=== PATIENT | female | born 1970 | race African-American/Black ===

== ENCOUNTER 2023-04-23 09:19 | Inpatient (IN) | payer SELFPAY ==
[~2023-04-23] VITALS: Ht 170.2 cm; Wt 111.6 kg
[2023-04-23] MEDS ORDERED: GLYB3TAB2 PO (09:29)
[2023-04-23] MEDS ORDERED: NORV5TAB PO (09:29)
[2023-04-23] MEDS ORDERED: ATOR1TAB21 PO (09:29)
[2023-04-23] MEDS ORDERED: VITA500C24 PO (09:29)
[2023-04-23] MEDS ORDERED: ALBU2.5V10 INH (09:29)
[2023-04-23] MEDS ORDERED: ONDA4TAB6 SL (09:29)
[2023-04-23] MEDS: ONDANSETRON 4MG 2ML VIAL IV ONE (10:49)
[2023-04-23] MEDS: NS 1,000 ML IV SCH (10:49)
[2023-04-23] MEDS: MORPHINE 4 MG/ML 1ML VIAL IV PRN (10:50)
[2023-04-23 11:07] LABS: BASO # 0.1 10^3/uL (0.0-0.2); BASO % 0.4 % (0.0-1.0); EOS # 0.3 10^3/uL (0.0-0.5); EOS % 1.9 % (0.0-3.0); HEMATOCRIT 46.6 % (36.0-47.0); HEMOGLOBIN 15.2 g/dl (12.0-15.5); LYMPH # 2.7 10^3/uL (1.5-5.0); LYMPH % 18.9 % (24.0-44.0); MEAN CORPUSCULAR HEMOGLOBIN 29.9 pg (27.0-33.0); MEAN CORPUSCULAR HGB CONC 32.6 g/dl (32.0-36.5); MEAN CORPUSCULAR VOLUME 91.6 fl (80.0-96.0); MONO # 0.7 10^3/uL (0.0-0.8); MONO % 5.1 % (2.0-8.0); NEUTROPHILS # 10.3 10^3/uL (1.5-8.5); NEUTROPHILS % 73.3 % (36.0-66.0); PLATELET COUNT, AUTOMATED 289 10^3/uL (150-450); RED BLOOD COUNT 5.09 10^6/uL (4.00-5.40)
[2023-04-23 11:21] LABS: INR 1.05; PARTIAL THROMBOPLASTIN TIME 26.2 SECONDS (24.8-34.2); PROTHROMBIN TIME 13.4 SECONDS (12.5-14.5)
[2023-04-23] MEDS ORDERED: ISOVUE-370 76% 100ML VIAL As Ordered ONE (11:28)
[2023-04-23 11:33] LABS: LIPASE 52 U/L (12-53)
[2023-04-23 11:35] LABS: ALKALINE PHOSPHATASE 94 U/L (46-116); ALT/SGPT 15 U/L (7.0-40); AMYLASE 116 U/L (30-118); AST/SGOT 12 U/L (<34); BILIRUBIN,DIRECT 0.1 MG/DL (<0.4); BILIRUBIN,TOTAL 0.3 MG/DL (0.3-1.2); TOTAL PROTEIN 8.5 G/DL (5.7-8.2)
[2023-04-23 11:54] LABS: RSV AMPLIFICATION NEGATIVE (NEGATIVE)
[2023-04-23] MEDS ORDERED: ONDANSETRON 4MG 2ML VIAL IV PRN (12:45)
[2023-04-23] MEDS ORDERED: DEXTROSE 50% 50ML SYRINGE IV PRN (12:45)
[2023-04-23] MEDS ORDERED: GLUCOSE 4GM CHEW TABLET PO PRN (12:45)
[2023-04-23] MEDS ORDERED: GLUCAGON INJ 1MG VIAL SC PRN (12:45)
[2023-04-23] MEDS ORDERED: FERR1TAB8 PO (13:11)
[2023-04-23] MEDS ORDERED: LISI20TA35 PO (13:11)
[2023-04-23] MEDS ORDERED: ALBU8.5H INH (13:11)
[2023-04-23] MEDS ORDERED: GLIM2TAB29 PO (13:11)
[2023-04-23] MEDS ORDERED: OMEP1CAP73 PO (13:12)
[2023-04-23] MEDS ORDERED: HOME MED LIST COMPLETE! XX SCH (13:15)
[2023-04-23 13:24] LABS: PROCALCITONIN <0.04 ng/ml
[2023-04-23] MEDS: LABETALOL 100MG/20ML VIAL IV STA (14:03)
[2023-04-23 14:56] LABS: HEMOGLOBIN A1c 5.9 % (4.0-6.0)
[2023-04-23 16:58] VITALS: BP 188/76; TEMP 98.1; O2SAT 97
[2023-04-23] MEDS ORDERED: MORPHINE 4 MG/ML 1ML VIAL IV PRN (17:00)
[2023-04-23] MEDS ORDERED: ALBUTEROL 90 MCG/ACT 8GM HFA INHALER INH PRN (17:00)
[2023-04-23] MEDS: LABETALOL 100MG/20ML VIAL IV PRN (17:12)
[2023-04-23] MEDS: INSULIN LISPRO (NovoLOG) PER UNIT SC SCH (17:15)
[2023-04-23] MEDS: LR 1,000 ML IV SCH (17:15)
[2023-04-23 18:34] VITALS: BP 161/74
[2023-04-23 19:46] VITALS: BP 179/79; TEMP 98.2; O2SAT 96
[2023-04-23 23:57] VITALS: BP 157/75; TEMP 97.8; O2SAT 96
[2023-04-24] VITALS (8 sets, daily range): BP systolic 168–188; BP diastolic 72–92; TEMP 98.2–98.6; O2SAT 95–99
[2023-04-24] MEDS: ACETAMINOPHEN TAB 650MG DOSE (2X325MG) PO PRN (00:50)
[2023-04-24 05:49] LABS: HEMATOCRIT 41.9 % (36.0-47.0); HEMOGLOBIN 13.6 g/dl (12.0-15.5); MEAN CORPUSCULAR HEMOGLOBIN 29.8 pg (27.0-33.0); MEAN CORPUSCULAR HGB CONC 32.5 g/dl (32.0-36.5); MEAN CORPUSCULAR VOLUME 91.7 fl (80.0-96.0); PLATELET COUNT, AUTOMATED 277 10^3/uL (150-450); RED BLOOD COUNT 4.57 10^6/uL (4.00-5.40); WHITE BLOOD COUNT 10.2 10^3/uL (4.0-10.0)
[2023-04-24 06:17] LABS: BLOOD UREA NITROGEN 13 MG/DL (9-23); CALCIUM LEVEL 9.1 MG/DL (8.5-10.1); CARBON DIOXIDE LEVEL 27 MMOL/L (20-31); CHLORIDE LEVEL 106 MMOL/L (98-107); GLOMERULAR FILTRATION RATE > 60.0 (>51); GLUCOSE, FASTING 99 MG/DL (60-100); MAGNESIUM LEVEL 1.7 MG/DL (1.8-2.4); POTASSIUM SERUM 3.8 MMOL/L (3.5-5.1); SODIUM LEVEL 139 MMOL/L (136-145)
[2023-04-24] MEDS: ENOXAPARIN 40MG/0.4ML SYRINGE (J1650 PER 10MG) SC SCH (08:39)
[2023-04-24] MEDS: MAG SULF 1GM/100ML (MAG RUN) 1 GM in IV 1 EA IV ONE (08:39)
[2023-04-24] MEDS: LIDOCAINE 5% (LIDODERM) PATCH TD SCH (10:45)
[2023-04-24] MEDS: amLODIPine 5 MG TAB PO SCH (11:23)
[2023-04-24] MEDS: hydroCHLOROthiazide 12.5 MG CAPSULE PO SCH (11:23)
[2023-04-24] MEDS: amLODIPine 5 MG TAB PO ONE (14:51)
[2023-04-25 00:05] VITALS: BP 145/65; TEMP 97.6; O2SAT 97
[2023-04-25 03:56] VITALS: BP 138/60; TEMP 97.5; O2SAT 98
[2023-04-25 08:10] VITALS: BP 169/79; TEMP 97.9; O2SAT 98
[2023-04-25 10:24] LABS: BASO % 0.5 % (0.0-1.0); EOS # 0.3 10^3/uL (0.0-0.5); EOS % 3.7 % (0.0-3.0); HEMATOCRIT 43.6 % (36.0-47.0); HEMOGLOBIN 14.3 g/dl (12.0-15.5); LYMPH # 2.9 10^3/uL (1.5-5.0); MEAN CORPUSCULAR HGB CONC 32.8 g/dl (32.0-36.5); MEAN CORPUSCULAR VOLUME 91.6 fl (80.0-96.0); MONO # 0.7 10^3/uL (0.0-0.8); MONO % 8.9 % (2.0-8.0); NEUTROPHILS # 4.3 10^3/uL (1.5-8.5); NEUTROPHILS % 51.7 % (36.0-66.0); PLATELET COUNT, AUTOMATED 194 10^3/uL (150-450); RED BLOOD COUNT 4.76 10^6/uL (4.00-5.40); WHITE BLOOD COUNT 8.3 10^3/uL (4.0-10.0)
[2023-04-25 11:49] LABS: BLOOD UREA NITROGEN 10 MG/DL (9-23); CALCIUM LEVEL 9.3 MG/DL (8.5-10.1); CARBON DIOXIDE LEVEL 28 MMOL/L (20-31); CHLORIDE LEVEL 106 MMOL/L (98-107); CREATININE FOR GFR 0.73 MG/DL (0.55-1.30); GLOMERULAR FILTRATION RATE > 60.0 (>51); GLUCOSE, FASTING 92 MG/DL (60-100); MAGNESIUM LEVEL 1.5 MG/DL (1.8-2.4); POTASSIUM SERUM 3.9 MMOL/L (3.5-5.1); SODIUM LEVEL 139 MMOL/L (136-145)
[2023-04-25 11:56] VITALS: BP 162/74
[2023-04-25 12:01] VITALS: BP 162/74
[2023-04-25] MEDS: LABETALOL 100MG/20ML VIAL IV ONE (12:01)
[2023-04-25 12:30] VITALS: BP 152/83
[2023-04-25] MEDS ORDERED: ATOR1TAB21 PO (13:00)
[2023-04-25] MEDS ORDERED: ONDA4TAB6 SL (13:00)
[2023-04-25] MEDS ORDERED: GLIM2TAB29 PO (13:00)
[2023-04-25] MEDS ORDERED: VITA500C24 PO (13:00)
[2023-04-25] MEDS ORDERED: ALBU8.5H INH (13:00)
[2023-04-25] MEDS ORDERED: OMEP1CAP73 PO (13:00)
[2023-04-25] MEDS ORDERED: FERR1TAB8 PO (13:00)
[2023-04-25] MEDS ORDERED: LISI20TA35 PO (13:00)
[2023-04-25] MEDS ORDERED: NORV5TAB PO (13:00)
== END 2023-04-25 13:15 | disposition home or self-care (01) | DRG 247 ==
LOC: M ED 09:19 → M ED INP 12:43 → ENRESERV 13:51 → M PCU 16:39
PROVIDERS: ADMIT Internal Medicine; ATTEND Internal Medicine
DX: K56.609 Unspecified intestinal obstruction, unspecified as to partial versus complete obstruction (principal); D72.829 Elevated white blood cell count, unspecified; I10 Essential (primary) hypertension; E11.9 Type 2 diabetes mellitus without complications; J45.909 Unspecified asthma, uncomplicated; I16.0 Hypertensive urgency; Z91.148 Patient's other noncompliance with medication regimen for other reason; Z88.5 Allergy status to narcotic agent; Z79.899 Other long term (current) drug therapy; M54.2 Cervicalgia

== ENCOUNTER 2023-05-01 11:32 | Observation (INO) | payer SELFPAY ==
[~2023-05-01] VITALS: Ht 170.2 cm; Wt 110.0 kg
[~2023-05-01 11:32] MED LIST: ALBU2.5V10 INH; ALBU8.5H INH; ATOR1TAB21 PO; FERR1TAB8 PO; GLIM2TAB29 PO; GLYB3TAB2 PO; LISI20TA35 PO; NORV5TAB PO; OMEP1CAP73 PO; ONDA4TAB6 SL; VITA500C24 PO
[2023-05-01 12:05] LABS: BASO # 0.1 10^3/uL (0.0-0.2); BASO % 0.5 % (0.0-1.0); EOS # 0.2 10^3/uL (0.0-0.5); EOS % 1.8 % (0.0-3.0); HEMATOCRIT 48.4 % (36.0-47.0); HEMOGLOBIN 15.6 g/dl (12.0-15.5); LYMPH # 2.7 10^3/uL (1.5-5.0); LYMPH % 20.4 % (24.0-44.0); MEAN CORPUSCULAR HGB CONC 32.2 g/dl (32.0-36.5); MEAN CORPUSCULAR VOLUME 93.1 fl (80.0-96.0); MONO # 0.6 10^3/uL (0.0-0.8); MONO % 4.8 % (2.0-8.0); NEUTROPHILS # 9.5 10^3/uL (1.5-8.5); PLATELET COUNT, AUTOMATED 341 10^3/uL (150-450); WHITE BLOOD COUNT 13.2 10^3/uL (4.0-10.0)
[2023-05-01] MEDS: MORPHINE 4 MG/ML 1ML VIAL IV ONE (12:35)
[2023-05-01 12:36] LABS: ALKALINE PHOSPHATASE 84 U/L (46-116); ALT/SGPT 19 U/L (7.0-40); AST/SGOT 42 U/L (<34); BILIRUBIN,DIRECT < 0.1 MG/DL (<0.4); BILIRUBIN,TOTAL 0.3 MG/DL (0.3-1.2); BLOOD UREA NITROGEN 17 MG/DL (9-23); CARBON DIOXIDE LEVEL 30 MMOL/L (20-31); CHLORIDE LEVEL 104 MMOL/L (98-107); CREATININE FOR GFR 0.75 MG/DL (0.55-1.30); GLOMERULAR FILTRATION RATE > 60.0 (>51); GLUCOSE, FASTING 149 MG/DL (60-100); LIPASE 176 U/L (12-53); POTASSIUM SERUM 5.3 MMOL/L (3.5-5.1); SODIUM LEVEL 139 MMOL/L (136-145); TOTAL PROTEIN 8.6 G/DL (5.7-8.2)
[2023-05-01] MEDS: ONDANSETRON 4MG 2ML VIAL IV ONE (12:58)
[2023-05-01] MEDS: NS 1,000 ML IV SCH (12:58)
[2023-05-01] MEDS ORDERED: ISOVUE-370 76% 100ML VIAL As Ordered ONE (13:12)
[2023-05-01] MEDS: GASTROGRAFIN SOLUTION 30ML PO SCH (13:48)
[2023-05-01 14:13] LABS: RSV AMPLIFICATION NEGATIVE (NEGATIVE)
[2023-05-01] MEDS ORDERED: MORPHINE 4 MG/ML 1ML VIAL IV ONE (16:20)
[2023-05-01] MEDS: ACETAMINOPHEN *IV* 1,000 MG in IV 1 EA IV ONE (16:43)
[2023-05-01] MEDS ORDERED: MED REC IN PROGRESS XX SCH (16:45)
[2023-05-01 16:48] LABS: TRIGLYCERIDES LEVEL 93 MG/DL (<150)
[2023-05-01] MEDS ORDERED: GLUCOSE 4GM CHEW TABLET PO PRN (17:40)
[2023-05-01] MEDS ORDERED: GLUCAGON INJ 1MG VIAL SC PRN (17:40)
[2023-05-01] MEDS ORDERED: DEXTROSE 50% 50ML SYRINGE IV PRN (17:40)
[2023-05-01] MEDS ORDERED: ONDANSETRON 4MG 2ML VIAL IV PRN (17:40)
[2023-05-01] MEDS ORDERED: hydrALAZINE 20MG/ML 1ML VIAL IV PRN (17:50)
[2023-05-01] MEDS ORDERED: MORPHINE 2 MG/ML 1ML VIAL IV PRN (17:55)
[2023-05-01] MEDS: INSULIN LISPRO (NovoLOG) PER UNIT SC SCH (18:00)
[2023-05-01] MEDS ORDERED: HOME MED LIST COMPLETE! XX SCH (18:05)
[2023-05-01] MEDS ORDERED: FERR325T3 PO (18:05)
[2023-05-01] MEDS ORDERED: AMLO1TAB24 PO (18:05)
[2023-05-01] MEDS ORDERED: ONDA4TAB6 PO (18:05)
[2023-05-01] MEDS ORDERED: VENTAER INH (18:05)
[2023-05-01] MEDS ORDERED: MM S100C PO (18:05)
[2023-05-01 18:06] LABS: HEMATOCRIT 44.7 % (36.0-47.0); HEMOGLOBIN 14.5 g/dl (12.0-15.5)
[2023-05-01] MEDS ORDERED: ALBUTEROL 90 MCG/ACT 8GM HFA INHALER INH PRN (18:10)
[2023-05-01] MEDS ORDERED: DOCUSATE SODIUM 100MG CAPSULE PO PRN (18:10)
[2023-05-01] MEDS: SUCRALFATE 1 GM TAB PO SCH (19:08)
[2023-05-01] MEDS: LACTATED RINGER'S 1000 ML IV ONE (19:09)
[2023-05-01 20:46] VITALS: BP 168/79; TEMP 97.2; O2SAT 95
[2023-05-01 20:47] VITALS: BP 160/92
[2023-05-01 21:00] VITALS: O2SAT 95
[2023-05-01 22:00] VITALS: O2SAT 93
[2023-05-01] MEDS: PANTOPRAZOLE 40MG VIAL IV SCH (22:12)
[2023-05-01 23:00] VITALS: O2SAT 91
[2023-05-01] MEDS: ACETAMINOPHEN TAB 650MG DOSE (2X325MG) PO PRN (23:54)
[2023-05-02] VITALS (13 sets, daily range): BP systolic 124–163; BP diastolic 58–87; TEMP 96.8–98.8; O2SAT 90–100
[2023-05-02 00:36] LABS: HEMATOCRIT 41.4 % (36.0-47.0); HEMOGLOBIN 13.5 g/dl (12.0-15.5)
[2023-05-02 05:38] LABS: BASO # 0.1 10^3/uL (0.0-0.2); BASO % 0.8 % (0.0-1.0); EOS # 0.2 10^3/uL (0.0-0.5); HEMATOCRIT 40.9 % (36.0-47.0); HEMOGLOBIN 13.5 g/dl (12.0-15.5); LYMPH # 2.8 10^3/uL (1.5-5.0); LYMPH % 35.8 % (24.0-44.0); MEAN CORPUSCULAR HEMOGLOBIN 30.1 pg (27.0-33.0); MEAN CORPUSCULAR VOLUME 91.1 fl (80.0-96.0); MONO # 0.6 10^3/uL (0.0-0.8); MONO % 7.3 % (2.0-8.0); NEUTROPHILS # 4.1 10^3/uL (1.5-8.5); NEUTROPHILS % 52.8 % (36.0-66.0); PLATELET COUNT, AUTOMATED 305 10^3/uL (150-450); RED BLOOD COUNT 4.49 10^6/uL (4.00-5.40); WHITE BLOOD COUNT 7.8 10^3/uL (4.0-10.0)
[2023-05-02 06:01] LABS: ALBUMIN 3.3 G/DL (3.2-5.2); ALKALINE PHOSPHATASE 74 U/L (46-116); ALT/SGPT 13 U/L (7.0-40); AST/SGOT 9 U/L (<34); BILIRUBIN,TOTAL 0.4 MG/DL (0.3-1.2); BLOOD UREA NITROGEN 14 MG/DL (9-23); CALCIUM LEVEL 9.1 MG/DL (8.5-10.1); CARBON DIOXIDE LEVEL 28 MMOL/L (20-31); CHLORIDE LEVEL 108 MMOL/L (98-107); CREATININE FOR GFR 0.75 MG/DL (0.55-1.30); GLOMERULAR FILTRATION RATE > 60.0 (>51); GLUCOSE, FASTING 119 MG/DL (60-100); MAGNESIUM LEVEL 1.6 MG/DL (1.8-2.4); POTASSIUM SERUM 3.8 MMOL/L (3.5-5.1); SODIUM LEVEL 140 MMOL/L (136-145); TOTAL PROTEIN 7.1 G/DL (5.7-8.2)
[2023-05-02] MEDS ORDERED: PANT40TA29 PO (08:15)
[2023-05-02] MEDS ORDERED: CARA1TAB6 PO (08:15)
[2023-05-02] MEDS: ASCORBIC ACID 500 MG TAB PO SCH (08:42)
[2023-05-02] MEDS: amLODIPine 5 MG TAB PO SCH (08:43)
[2023-05-02] MEDS: MAG SULF 1GM/100ML (MAG RUN) 1 GM in IV 1 EA IV SCH (08:43)
[2023-05-02] MEDS: ATORVASTATIN 20 MG TAB PO SCH (08:43)
[2023-05-02] MEDS: hydroCHLOROthiazide 12.5 MG CAPSULE PO ONE (11:29)
[2023-05-02 13:10] LABS: HEMATOCRIT 43.2 % (36.0-47.0)
== END 2023-05-02 14:12 | disposition home or self-care (01) ==
LOC: M ED 11:59 → INTOOBSV 17:12 → M ED INP 17:12 → ENRESERV 19:30 → M PCU 20:29
PROVIDERS: ADMIT Internal Medicine; ATTEND Internal Medicine
DX: K85.90 Acute pancreatitis without necrosis or infection, unspecified (principal); K29.70 Gastritis, unspecified, without bleeding; I10 Essential (primary) hypertension; E11.9 Type 2 diabetes mellitus without complications; J45.909 Unspecified asthma, uncomplicated; M54.30 Sciatica, unspecified side; Z79.51 Long term (current) use of inhaled steroids; Z79.899 Other long term (current) drug therapy; Z88.5 Allergy status to narcotic agent
CPT/HCPCS: 36415; 74177; 80048; 80053; 80076; 83690; 83735; 84132; 84478; 85014; 85018; 85025; 87631; 93005; 93041; 96361; 96365; 96375; 96376; 99285; C9113; J0131; J2405; J3475; Q9963; Q9967

== ENCOUNTER → 2023-05-13 | Outpatient (REF) | payer MEDICAID, SELFPAY ==
[~2023-05-13] MED LIST changes: +AMLO1TAB24 PO; +CARA1TAB6 PO; +FERR325T3 PO; +MM S100C PO; +ONDA-83 PO; +ONDA4TAB6 PO; +PANT40TA29 PO; +SUCR1TA PO; +VENTAER INH
[2023-05-13 12:24] LABS: BASO # 0.1 10^3/uL (0.0-0.2); BASO % 0.6 % (0.0-1.0); EOS # 0.3 10^3/uL (0.0-0.5); EOS % 3.8 % (0.0-3.0); HEMATOCRIT 46.4 % (36.0-47.0); LYMPH # 2.9 10^3/uL (1.5-5.0); LYMPH % 32.1 % (24.0-44.0); MEAN CORPUSCULAR HEMOGLOBIN 30.1 pg (27.0-33.0); MEAN CORPUSCULAR HGB CONC 32.3 g/dl (32.0-36.5); MONO # 0.5 10^3/uL (0.0-0.8); MONO % 5.3 % (2.0-8.0); NEUTROPHILS # 5.2 10^3/uL (1.5-8.5); NEUTROPHILS % 57.9 % (36.0-66.0); PLATELET COUNT, AUTOMATED 356 10^3/uL (150-450); RED BLOOD COUNT 4.99 10^6/uL (4.00-5.40)
[2023-05-13 12:49] LABS: LIPASE 47 U/L (12-53)
[2023-05-13 12:51] LABS: ALKALINE PHOSPHATASE 87 U/L (46-116); ALT/SGPT 14 U/L (7.0-40); AST/SGOT 10 U/L (<34); BILIRUBIN,TOTAL 0.2 MG/DL (0.3-1.2); BLOOD UREA NITROGEN 20 MG/DL (9-23); CALCIUM LEVEL 9.8 MG/DL (8.5-10.1); CARBON DIOXIDE LEVEL 28 MMOL/L (20-31); CHLORIDE LEVEL 102 MMOL/L (98-107); CHOLESTEROL LEVEL 200 MG/DL (<200); CREATININE FOR GFR 0.88 MG/DL (0.55-1.30); GLOMERULAR FILTRATION RATE > 60.0 (>51); GLUCOSE, FASTING 147 MG/DL (60-100); HDL CHOLESTEROL 51.2 MG/DL (>40); IRON (FE) 33 UG/DL (50-170); LDL CHOLESTEROL 122.6 MG/DL (<100); MAGNESIUM LEVEL 1.6 MG/DL (1.8-2.4); NON-HDL-C 148.8 MG/DL; PERCENT SATURATION 10.1 % (13.2-45.0); POTASSIUM SERUM 4.1 MMOL/L (3.5-5.1); SODIUM LEVEL 138 MMOL/L (136-145); TOTAL IRON BINDING CAPACITY 327 UG/DL (250-425); TOTAL PROTEIN 8.5 G/DL (5.7-8.2); TRIGLYCERIDES LEVEL 131 MG/DL (<150)
[2023-05-13 12:53] LABS: FERRITIN 30.4 NG/ML (7.3-270.7); THYROID STIMULATING HORMONE 1.643 uIU/ML (0.55-4.78)
[2023-05-13 12:54] LABS: FOLATE > 24.0 NG/ML (>5.4); TOTAL 25(OH) VITAMIN D 39.9 NG/ML (20.0-100.0); VITAMIN B12 LEVEL 1049 PG/ML (211-911)
== END ==
LOC: M LAB REF 11:50
PROVIDERS: ATTEND Nurse Practitioner Family
DX: D64.9 Anemia, unspecified (principal); E66.9 Obesity, unspecified; E55.9 Vitamin D deficiency, unspecified; K85.90 Acute pancreatitis without necrosis or infection, unspecified

== ENCOUNTER 2023-05-16 08:40 | Inpatient (IN) | payer SELFPAY ==
[~2023-05-16] VITALS: Ht 170.2 cm; Wt 100.9 kg
[~2023-05-16 08:40] MED LIST changes: -ONDA-83 PO; -SUCR1TA PO
[2023-05-16 09:22] LABS: BASO # 0.1 10^3/uL (0.0-0.2); BASO % 0.7 % (0.0-1.0); EOS # 0.4 10^3/uL (0.0-0.5); EOS % 4.3 % (0.0-3.0); HEMATOCRIT 46.5 % (36.0-47.0); HEMOGLOBIN 15.3 g/dl (12.0-15.5); LYMPH # 4.8 10^3/uL (1.5-5.0); LYMPH % 47.5 % (24.0-44.0); MEAN CORPUSCULAR HEMOGLOBIN 29.7 pg (27.0-33.0); MEAN CORPUSCULAR HGB CONC 32.9 g/dl (32.0-36.5); MEAN CORPUSCULAR VOLUME 90.3 fl (80.0-96.0); MONO # 0.7 10^3/uL (0.0-0.8); MONO % 7.3 % (2.0-8.0); NEUTROPHILS % 39.9 % (36.0-66.0); PLATELET COUNT, AUTOMATED 357 10^3/uL (150-450); RED BLOOD COUNT 5.15 10^6/uL (4.00-5.40); WHITE BLOOD COUNT 10.1 10^3/uL (4.0-10.0)
[2023-05-16 09:31] LABS: INR 1.01
[2023-05-16] MEDS: HALOPERIDOL 5MG/ML 1ML VIAL IV ONE (09:33)
[2023-05-16] MEDS: NS 1,000 ML IV SCH (09:33)
[2023-05-16 09:44] LABS: ETHYL ALCOHOL (ETHANOL) 0.005 % (0.000-0.010); LIPASE 48 U/L (12-53)
[2023-05-16 09:45] LABS: AMYLASE 140 U/L (30-118)
[2023-05-16 09:46] LABS: ALBUMIN 3.8 G/DL (3.2-5.2); ALKALINE PHOSPHATASE 92 U/L (46-116); ALT/SGPT 14 U/L (7.0-40); AST/SGOT 24 U/L (<34); BILIRUBIN,DIRECT < 0.1 MG/DL (<0.4); BILIRUBIN,TOTAL 0.2 MG/DL (0.3-1.2); BLOOD UREA NITROGEN 18 MG/DL (9-23); CARBON DIOXIDE LEVEL 26 MMOL/L (20-31); CHLORIDE LEVEL 102 MMOL/L (98-107); GLOMERULAR FILTRATION RATE > 60.0 (>51); GLUCOSE, FASTING 145 MG/DL (60-100); SODIUM LEVEL 139 MMOL/L (136-145); TOTAL PROTEIN 8.6 G/DL (5.7-8.2)
[2023-05-16] MEDS: NS 3,030 ML in IV 1 EA IV ONE (10:20)
[2023-05-16] MEDS: PIPERACILLIN/TAZOBACTAM SOD 4.5 GM in D5W MINI-BAG PLUS 50 ML IV ONE (10:20)
[2023-05-16] MEDS: GASTROGRAFIN SOLUTION 30ML PO SCH (10:49)
[2023-05-16] MEDS ORDERED: ISOVUE-370 76% 100ML VIAL As Ordered ONE (11:16)
[2023-05-16 12:44] LABS: BARBITURATES URINE NEGATIVE (NEGATIVE); COCAINE METABOLITE URINE NEGATIVE (NEGATIVE); METHADONE URINE NEGATIVE (NEGATIVE)
[2023-05-16 12:45] LABS: AMPHETAMINES LEVEL URINE NEGATIVE (NEGATIVE); BENZODIAZEPINES URINE NEGATIVE (NEGATIVE); OPIATES URINE NEGATIVE (NEGATIVE); PHENCYCLIDINE URINE NEGATIVE (NEGATIVE)
[2023-05-16 12:46] LABS: CANNABINOIDS URINE POSITIVE (NEGATIVE)
[2023-05-16] MEDS ORDERED: KETOROLAC 30 MG/ML 1ML VIAL IV PRN (14:10)
[2023-05-16] MEDS ORDERED: ONDANSETRON 4MG 2ML VIAL IV PRN (14:10)
[2023-05-16] MEDS ORDERED: SUCR1TA PO (14:36)
[2023-05-16] MEDS ORDERED: PANT40TA29 PO (14:36)
[2023-05-16] MEDS ORDERED: HOME MED LIST COMPLETE! XX SCH (14:40)
[2023-05-16] MEDS ORDERED: GLUCAGON INJ 1MG VIAL SC PRN (15:00)
[2023-05-16] MEDS ORDERED: DEXTROSE 50% 50ML SYRINGE IV PRN (15:00)
[2023-05-16] MEDS ORDERED: GLUCOSE 4GM CHEW TABLET PO PRN (15:00)
[2023-05-16] MEDS: hydrALAZINE 20MG/ML 1ML VIAL IV SCH (15:29)
[2023-05-16] MEDS: ACETAMINOPHEN *IV* 1,000 MG in IV 1 EA IV ONE (15:29)
[2023-05-16] MEDS: METOPROLOL 5 MG/5 ML VIAL IV SCH (15:29)
[2023-05-16] MEDS: D5W/0.45% SODIUM CHLORIDE 1,000 ML IV SCH (15:30)
[2023-05-16] MEDS: BISACODYL 10MG SUPP PR ONE (15:31)
[2023-05-16] MEDS: NS 1,000 ML IV ONE (15:31)
[2023-05-16 16:16] VITALS: BP 152/79; TEMP 98.1; O2SAT 99
[2023-05-16] MEDS ORDERED: BISACODYL 10MG SUPP PR SCH (21:00)
[2023-05-17] MEDS ORDERED: PANTOPRAZOLE 40MG VIAL IV SCH (09:00)
== END 2023-05-16 17:17 | disposition home or self-care (01) | DRG 247 ==
LOC: M ED 09:15 → M ED INP 14:04
PROVIDERS: ADMIT General Practice; ATTEND General Practice
DX: K56.600 Partial intestinal obstruction, unspecified as to cause (principal); E87.20 Acidosis, unspecified; D72.10 Eosinophilia, unspecified; E11.9 Type 2 diabetes mellitus without complications; I10 Essential (primary) hypertension; E66.9 Obesity, unspecified; Z68.34 Body mass index [BMI] 34.0-34.9, adult; F12.90 Cannabis use, unspecified, uncomplicated; Z91.119 Patient's noncompliance with dietary regimen due to unspecified reason; E16.2 Hypoglycemia, unspecified; J45.909 Unspecified asthma, uncomplicated; M54.2 Cervicalgia; Z88.5 Allergy status to narcotic agent; Z79.899 Other long term (current) drug therapy

== ENCOUNTER 2023-06-01 11:01 | Inpatient (IN) | payer MEDICAID ==
[~2023-06-01] VITALS: Ht 233.7 cm; Wt 100.8 kg
[~2023-06-01 11:01] MED LIST changes: +SUCR1TA PO
[2023-06-01] MEDS ORDERED: ISOVUE-370 76% 100ML VIAL As Ordered ONE (11:39)
[2023-06-01] MEDS: NS 1,000 ML IV ONE (11:40)
[2023-06-01] MEDS: ONDANSETRON 4MG 2ML VIAL IV ONE ×2 (11:40→13:19)
[2023-06-01] MEDS: MORPHINE 2 MG/ML 1ML VIAL IV PRN (11:41)
[2023-06-01 11:42] LABS: BASO # 0.1 10^3/uL (0.0-0.2); BASO % 0.5 % (0.0-1.0); EOS # 0.3 10^3/uL (0.0-0.5); EOS % 2.3 % (0.0-3.0); HEMATOCRIT 46.1 % (36.0-47.0); HEMOGLOBIN 15.4 g/dl (12.0-15.5); LYMPH # 2.9 10^3/uL (1.5-5.0); LYMPH % 22.6 % (24.0-44.0); MEAN CORPUSCULAR HEMOGLOBIN 29.8 pg (27.0-33.0); MEAN CORPUSCULAR HGB CONC 33.4 g/dl (32.0-36.5); MEAN CORPUSCULAR VOLUME 89.3 fl (80.0-96.0); MONO # 0.5 10^3/uL (0.0-0.8); MONO % 4.2 % (2.0-8.0); NEUTROPHILS # 9.1 10^3/uL (1.5-8.5); PLATELET COUNT, AUTOMATED 283 10^3/uL (150-450); RED BLOOD COUNT 5.16 10^6/uL (4.00-5.40); WHITE BLOOD COUNT 12.9 10^3/uL (4.0-10.0)
[2023-06-01 11:55] LABS: INR 1.05; PARTIAL THROMBOPLASTIN TIME 26.3 SECONDS (24.8-34.2); PROTHROMBIN TIME 13.4 SECONDS (12.5-14.5)
[2023-06-01 12:11] LABS: LIPASE 54 U/L (12-53)
[2023-06-01 12:12] LABS: CPK CREATINE PHOSPHOKINASE 72 U/L (34-145)
[2023-06-01 12:13] LABS: ALKALINE PHOSPHATASE 91 U/L (46-116); ALT/SGPT 19 U/L (7.0-40); AST/SGOT 11 U/L (<34); BILIRUBIN,DIRECT 0.1 MG/DL (<0.4); BILIRUBIN,TOTAL 0.4 MG/DL (0.3-1.2); BLOOD UREA NITROGEN 13 MG/DL (9-23); CARBON DIOXIDE LEVEL 27 MMOL/L (20-31); CHLORIDE LEVEL 103 MMOL/L (98-107); CK-MB VALUE MASS < 1.0 NG/ML (<3.6); CREATININE FOR GFR 0.77 MG/DL (0.55-1.30); GLOMERULAR FILTRATION RATE > 60.0 (>51); GLUCOSE, FASTING 157 MG/DL (60-100); MB/CK RELATIVE INDEX 1.38 (< OR =4); POTASSIUM SERUM 3.7 MMOL/L (3.5-5.1); SODIUM LEVEL 140 MMOL/L (136-145); TOTAL PROTEIN 8.7 G/DL (5.7-8.2)
[2023-06-01] MEDS: MORPHINE 4 MG/ML 1ML VIAL IV ONE (12:35)
[2023-06-01] MEDS: PIPERACILLIN/TAZOBACTAM SOD 4.5 GM in D5W MINI-BAG PLUS 50 ML IV ONE (12:35)
[2023-06-01] MEDS: NS 2,030 ML in IV 1 EA IV ONE (12:36)
[2023-06-01 13:27] LABS: CK-MB VALUE MASS 1.2 NG/ML (<3.6)
[2023-06-01 13:28] LABS: CPK CREATINE PHOSPHOKINASE 71 U/L (34-145); MB/CK RELATIVE INDEX 1.69 (< OR =4)
[2023-06-01] MEDS ORDERED: ACETAMINOPHEN TAB 650MG DOSE (2X325MG) PO PRN (13:40)
[2023-06-01] MEDS ORDERED: GLUCAGON INJ 1MG VIAL SC PRN (13:55)
[2023-06-01] MEDS ORDERED: DEXTROSE 50% 50ML SYRINGE IV PRN (13:55)
[2023-06-01] MEDS ORDERED: GLUCOSE 4 GM CHEW PO PRN (13:55)
[2023-06-01] MEDS ORDERED: ONDA-83 PO (14:17)
[2023-06-01] MEDS ORDERED: HOME MED LIST COMPLETE! XX SCH (14:20)
[2023-06-01 15:43] VITALS: BP 137/84; TEMP 97.5; O2SAT 99
[2023-06-01] MEDS: LR 1,000 ML IV SCH (16:09)
[2023-06-01] MEDS: PANTOPRAZOLE 40MG VIAL IV SCH (17:38)
[2023-06-01] MEDS: HEPARIN SOD (PORCINE) 5000UNITS/ML 1ML VIAL/SYRINGE SC SCH (17:38)
[2023-06-01] MEDS: INSULIN LISPRO (NovoLOG) PER UNIT SC SCH (17:43)
[2023-06-01] MEDS: KETOROLAC 30 MG/ML 1ML VIAL IV PRN (20:15)
[2023-06-01 20:21] VITALS: BP 135/74; TEMP 97.3; O2SAT 99
[2023-06-02 05:41] VITALS: BP 127/66; TEMP 97.5; O2SAT 97
[2023-06-02] MEDS ORDERED: ACETAMINOPHEN *IV* 1,000 MG in IV 1 EA IV ONE (06:00)
[2023-06-02] MEDS: ACETAMINOPHEN *IV* 1,000 MG in IV 1 EA IV ONE (06:11)
[2023-06-02 06:21] LABS: HEMATOCRIT 37.7 % (36.0-47.0); HEMOGLOBIN 12.5 g/dl (12.0-15.5); MEAN CORPUSCULAR HEMOGLOBIN 29.9 pg (27.0-33.0); MEAN CORPUSCULAR HGB CONC 33.2 g/dl (32.0-36.5); MEAN CORPUSCULAR VOLUME 90.2 fl (80.0-96.0); PLATELET COUNT, AUTOMATED 253 10^3/uL (150-450); RED BLOOD COUNT 4.18 10^6/uL (4.00-5.40); WHITE BLOOD COUNT 10.8 10^3/uL (4.0-10.0)
[2023-06-02 06:33] LABS: BLOOD UREA NITROGEN 18 MG/DL (9-23); CALCIUM LEVEL 9.4 MG/DL (8.5-10.1); CARBON DIOXIDE LEVEL 25 MMOL/L (20-31); CHLORIDE LEVEL 108 MMOL/L (98-107); GLOMERULAR FILTRATION RATE > 60.0 (>51); GLUCOSE, FASTING 92 MG/DL (60-100); POTASSIUM SERUM 3.5 MMOL/L (3.5-5.1); SODIUM LEVEL 142 MMOL/L (136-145)
[2023-06-02] MEDS ORDERED: E-Z-PAQUE 96% w/w SUSP 176GM BTL As Ordered ONE (08:28)
[2023-06-02 14:00] VITALS: BP 150/73; TEMP 97.7; O2SAT 100
[2023-06-02] MEDS: ASCORBIC ACID 500 MG TAB PO SCH (18:46)
[2023-06-02] MEDS: hydroCHLOROthiazide 12.5 MG CAPSULE PO SCH (18:46)
[2023-06-02] MEDS: amLODIPine 5 MG TAB PO SCH (18:47)
[2023-06-02] MEDS: KETOROLAC 30 MG/ML 1ML VIAL IV PRN (19:39)
[2023-06-02 20:30] VITALS: BP 117/70; TEMP 97.7; O2SAT 94
[2023-06-02] MEDS: SUCRALFATE 1 GM TAB PO SCH (21:18)
[2023-06-03 06:00] VITALS: BP 119/70; TEMP 97.7; O2SAT 98
[2023-06-03 06:18] LABS: HEMATOCRIT 38.3 % (36.0-47.0); HEMOGLOBIN 12.9 g/dl (12.0-15.5); MEAN CORPUSCULAR HEMOGLOBIN 30.1 pg (27.0-33.0); MEAN CORPUSCULAR HGB CONC 33.7 g/dl (32.0-36.5); MEAN CORPUSCULAR VOLUME 89.3 fl (80.0-96.0); PLATELET COUNT, AUTOMATED 240 10^3/uL (150-450); RED BLOOD COUNT 4.29 10^6/uL (4.00-5.40); WHITE BLOOD COUNT 7.4 10^3/uL (4.0-10.0)
[2023-06-03 06:44] LABS: BLOOD UREA NITROGEN 18 MG/DL (9-23); CALCIUM LEVEL 9.7 MG/DL (8.5-10.1); CARBON DIOXIDE LEVEL 26 MMOL/L (20-31); CHLORIDE LEVEL 106 MMOL/L (98-107); CREATININE FOR GFR 0.87 MG/DL (0.55-1.30); GLOMERULAR FILTRATION RATE > 60.0 (>51); GLUCOSE, FASTING 94 MG/DL (60-100); POTASSIUM SERUM 3.5 MMOL/L (3.5-5.1); SODIUM LEVEL 141 MMOL/L (136-145)
[2023-06-03] MEDS: ATORVASTATIN 20 MG TAB PO SCH (08:52)
[2023-06-03 14:00] VITALS: BP 117/95; TEMP 97.5; O2SAT 100
[2023-06-03 20:00] VITALS: BP 111/65; TEMP 97.9; O2SAT 100
[2023-06-04] VITALS (7 sets, daily range): BP systolic 124–159; BP diastolic 68–93; TEMP 97.2–97.5; O2SAT 96–100
[2023-06-04] MEDS: LR 1,000 ML IV SCH ×2 (01:53→15:25)
[2023-06-04] MEDS: ACETAMINOPHEN *IV* 1,000 MG in IV 1 EA IV ONE (01:53)
[2023-06-04 06:04] LABS: HEMATOCRIT 35.9 % (36.0-47.0); HEMOGLOBIN 12.1 g/dl (12.0-15.5); MEAN CORPUSCULAR HEMOGLOBIN 30.1 pg (27.0-33.0); MEAN CORPUSCULAR HGB CONC 33.7 g/dl (32.0-36.5); MEAN CORPUSCULAR VOLUME 89.3 fl (80.0-96.0); PLATELET COUNT, AUTOMATED 228 10^3/uL (150-450); RED BLOOD COUNT 4.02 10^6/uL (4.00-5.40); WHITE BLOOD COUNT 6.1 10^3/uL (4.0-10.0)
[2023-06-04 06:34] LABS: BLOOD UREA NITROGEN 14 MG/DL (9-23); CALCIUM LEVEL 9.1 MG/DL (8.5-10.1); CARBON DIOXIDE LEVEL 26 MMOL/L (20-31); CHLORIDE LEVEL 107 MMOL/L (98-107); CREATININE FOR GFR 0.82 MG/DL (0.55-1.30); GLOMERULAR FILTRATION RATE > 60.0 (>51); GLUCOSE, FASTING 101 MG/DL (60-100); POTASSIUM SERUM 3.5 MMOL/L (3.5-5.1); SODIUM LEVEL 141 MMOL/L (136-145)
[2023-06-04] MEDS: FERROUS SULFATE 325MG TAB PO SCH (07:54)
[2023-06-04] MEDS: ceFAZolin SOD 2 GM in IV 1 EA IV ONE (11:30)
[2023-06-04] MEDS: ceFAZolin 2 GM/D5W 50 ML IV BAG As Ordered ONE (11:46)
[2023-06-04] MEDS ORDERED: ACETAMINOPHEN 1000MG 100ML IV BAG As Ordered ONE (12:39)
[2023-06-04] MEDS ORDERED: MIDAZOLAM INJ 2MG/2ML VIAL As Ordered ONE (12:39)
[2023-06-04] MEDS ORDERED: SUGAMMADEX SODIUM 500 MG/5 ML VIAL (BRIDION) As Ordered ONE (12:39)
[2023-06-04] MEDS ORDERED: ONDANSETRON 4MG 2ML VIAL As Ordered ONE (12:39)
[2023-06-04] MEDS ORDERED: LIDOCAINE 2% 100MG/5ML SDV (FOR ANES.) As Ordered ONE (12:39)
[2023-06-04] MEDS ORDERED: propofoL 200 MG/20 ML VIAL As Ordered ONE (12:39)
[2023-06-04] MEDS ORDERED: fentaNYL 250 MCG/5 ML INJECTION As Ordered ONE (12:39)
[2023-06-04] MEDS ORDERED: ROCURONIUM BROMIDE 50MG/5ML VIAL As Ordered ONE (12:39)
[2023-06-04] MEDS ORDERED: KETOROLAC 60MG 2ML VIAL As Ordered ONE (12:39)
[2023-06-04] MEDS ORDERED: HYDROmorphone HCL 2MG/ML 1ML VIAL As Ordered ONE (13:17)
[2023-06-04] MEDS: metroNIDAZOLE/NACL 500MG(5MG/ML) 100ML BAG As Ordered ONE (13:40)
[2023-06-04] MEDS ORDERED: LABETALOL 100MG/20ML VIAL As Ordered ONE (14:23)
[2023-06-04] MEDS: LIDOCAINE 1% SDV 30ML VIAL As Ordered ONE (15:17)
[2023-06-04] MEDS ORDERED: diphenhydrAMINE 50MG/ML VIAL IV PRN (15:25)
[2023-06-04] MEDS ORDERED: fentaNYL 100 MCG/2 ML INJECTION IV PRN (15:25)
[2023-06-04] MEDS ORDERED: METOCLOPRAMIDE INJ 10MG/2ML VIAL IV PRN (15:25)
[2023-06-04] MEDS ORDERED: ONDANSETRON 4MG 2ML VIAL IV PRN (15:25)
[2023-06-04] MEDS ORDERED: MEPERIDINE 25 MG/ML 1ML VIAL IV PRN (15:25)
[2023-06-04] MEDS: HYDROMORPHONE HCL 0.5 MG/ 0.5 ML SYRINGE IV PRN (16:01)
[2023-06-04] MEDS: KETOROLAC 30 MG/ML 1ML VIAL IV SCH (16:57)
[2023-06-04] MEDS: PERCOCET 5MG/325MG TAB PO PRN (19:58)
[2023-06-05 01:40] VITALS: BP 142/74; TEMP 97.5; O2SAT 97
[2023-06-05 04:53] VITALS: BP 156/82; TEMP 97.5; O2SAT 96
[2023-06-05 06:32] LABS: HEMATOCRIT 36.3 % (36.0-47.0); HEMOGLOBIN 12.3 g/dl (12.0-15.5); MEAN CORPUSCULAR HEMOGLOBIN 29.8 pg (27.0-33.0); MEAN CORPUSCULAR HGB CONC 33.9 g/dl (32.0-36.5); MEAN CORPUSCULAR VOLUME 87.9 fl (80.0-96.0); PLATELET COUNT, AUTOMATED 229 10^3/uL (150-450); RED BLOOD COUNT 4.13 10^6/uL (4.00-5.40); WHITE BLOOD COUNT 12.5 10^3/uL (4.0-10.0)
[2023-06-05 06:57] LABS: BLOOD UREA NITROGEN 11 MG/DL (9-23); CALCIUM LEVEL 8.8 MG/DL (8.5-10.1); CARBON DIOXIDE LEVEL 27 MMOL/L (20-31); CHLORIDE LEVEL 105 MMOL/L (98-107); CREATININE FOR GFR 0.78 MG/DL (0.55-1.30); GLOMERULAR FILTRATION RATE > 60.0 (>51); GLUCOSE, FASTING 72 MG/DL (60-100); POTASSIUM SERUM 3.3 MMOL/L (3.5-5.1); SODIUM LEVEL 140 MMOL/L (136-145)
[2023-06-05] MEDS: PERCOCET 5MG/325MG TAB PO PRN (08:40)
[2023-06-05] MEDS: POTASSIUM CHLORIDE 10MEQ SR TABLET PO ONE (08:41)
[2023-06-05] MEDS: ONDANSETRON 4MG 2ML VIAL IV PRN (09:49)
[2023-06-05 10:00] VITALS: TEMP 97; O2SAT 98
[2023-06-05] MEDS: hydroCHLOROthiazide 12.5 MG CAPSULE PO SCH (13:39)
[2023-06-05] MEDS: HEPARIN SOD (PORCINE) 5000UNITS/ML 1ML VIAL/SYRINGE SQ SCH (14:40)
[2023-06-05 14:41] VITALS: BP 158/75; TEMP 97.9; O2SAT 96
[2023-06-05 18:55] VITALS: BP 157/82
[2023-06-05 20:21] VITALS: BP 130/68; TEMP 97.7; O2SAT 96
[2023-06-05] MEDS: ALVIMOPAN 12 MG CAPSULE (ENTEREG) PO SCH (20:27)
[2023-06-06 05:01] VITALS: BP 140/86; TEMP 97.5; O2SAT 97
[2023-06-06 06:34] LABS: HEMATOCRIT 36.3 % (36.0-47.0); HEMOGLOBIN 12.1 g/dl (12.0-15.5); MEAN CORPUSCULAR HEMOGLOBIN 29.6 pg (27.0-33.0); MEAN CORPUSCULAR HGB CONC 33.3 g/dl (32.0-36.5); MEAN CORPUSCULAR VOLUME 88.8 fl (80.0-96.0); PLATELET COUNT, AUTOMATED 227 10^3/uL (150-450); RED BLOOD COUNT 4.09 10^6/uL (4.00-5.40); WHITE BLOOD COUNT 9.7 10^3/uL (4.0-10.0)
[2023-06-06 06:54] LABS: BLOOD UREA NITROGEN 7 MG/DL (9-23); CALCIUM LEVEL 8.9 MG/DL (8.5-10.1); CARBON DIOXIDE LEVEL 24 MMOL/L (20-31); CHLORIDE LEVEL 104 MMOL/L (98-107); CREATININE FOR GFR 0.76 MG/DL (0.55-1.30); GLOMERULAR FILTRATION RATE > 60.0 (>51); GLUCOSE, FASTING 86 MG/DL (60-100); POTASSIUM SERUM 3.4 MMOL/L (3.5-5.1); SODIUM LEVEL 139 MMOL/L (136-145)
[2023-06-06 14:00] VITALS: BP 136/75; TEMP 97.5; O2SAT 98
[2023-06-06 22:00] VITALS: BP 133/64; TEMP 97.9; O2SAT 100
[2023-06-07 06:00] VITALS: BP 143/78; TEMP 97.5; O2SAT 97
[2023-06-07 07:12] LABS: HEMATOCRIT 35.6 % (36.0-47.0); HEMOGLOBIN 11.6 g/dl (12.0-15.5); MEAN CORPUSCULAR HEMOGLOBIN 29.4 pg (27.0-33.0); MEAN CORPUSCULAR HGB CONC 32.6 g/dl (32.0-36.5); MEAN CORPUSCULAR VOLUME 90.4 fl (80.0-96.0); PLATELET COUNT, AUTOMATED 228 10^3/uL (150-450); RED BLOOD COUNT 3.94 10^6/uL (4.00-5.40); WHITE BLOOD COUNT 8.9 10^3/uL (4.0-10.0)
[2023-06-07 07:32] LABS: BLOOD UREA NITROGEN 6 MG/DL (9-23); CALCIUM LEVEL 8.2 MG/DL (8.5-10.1); CARBON DIOXIDE LEVEL 28 MMOL/L (20-31); CHLORIDE LEVEL 106 MMOL/L (98-107); CREATININE FOR GFR 0.78 MG/DL (0.55-1.30); GLOMERULAR FILTRATION RATE > 60.0 (>51); GLUCOSE, FASTING 97 MG/DL (60-100); POTASSIUM SERUM 3.3 MMOL/L (3.5-5.1); SODIUM LEVEL 143 MMOL/L (136-145)
[2023-06-07] MEDS: POTASSIUM CHLORIDE 10MEQ SR TABLET PO ONE (08:21)
[2023-06-07 14:00] VITALS: BP 149/78; TEMP 97; O2SAT 99
[2023-06-07] MEDS: DOCUSATE SODIUM 100MG CAPSULE PO SCH (19:30)
[2023-06-07 22:00] VITALS: BP 144/77; TEMP 97; O2SAT 96
[2023-06-08 06:00] VITALS: BP 139/76; TEMP 97.9; O2SAT 97
[2023-06-08 08:24] LABS: HEMATOCRIT 36.9 % (36.0-47.0); HEMOGLOBIN 12.2 g/dl (12.0-15.5); MEAN CORPUSCULAR HGB CONC 33.1 g/dl (32.0-36.5); MEAN CORPUSCULAR VOLUME 90.7 fl (80.0-96.0); PLATELET COUNT, AUTOMATED 259 10^3/uL (150-450); RED BLOOD COUNT 4.07 10^6/uL (4.00-5.40); WHITE BLOOD COUNT 8.7 10^3/uL (4.0-10.0)
[2023-06-08 08:55] VITALS: BP 144/96
[2023-06-08 08:55] LABS: BLOOD UREA NITROGEN 6 MG/DL (9-23); CALCIUM LEVEL 9.1 MG/DL (8.5-10.1); CARBON DIOXIDE LEVEL 28 MMOL/L (20-31); CHLORIDE LEVEL 103 MMOL/L (98-107); GLOMERULAR FILTRATION RATE > 60.0 (>51); GLUCOSE, FASTING 89 MG/DL (60-100); POTASSIUM SERUM 3.6 MMOL/L (3.5-5.1); SODIUM LEVEL 139 MMOL/L (136-145)
[2023-06-08] MEDS ORDERED: COLA100C5 PO (10:05)
[2023-06-08] MEDS ORDERED: PERCOCET PO ×2 (10:05→10:26)
[2023-06-08] MEDS ORDERED: PANT40TA29 PO (11:19)
[2023-06-08] MEDS ORDERED: SUCR1TA PO (11:20)
== END 2023-06-08 11:44 | disposition home or self-care (01) | DRG 221 ==
LOC: EDBD 11:01 → M ED 11:01 → M ED INP 13:39 → M MSPAV 15:43
PROVIDERS: ADMIT Student in an Organized Health Care Education/Training Program; ATTEND Student in an Organized Health Care Education/Training Program
PROC: 0DNU4ZZ Release Omentum, Percutaneous Endoscopic Approach (ICD-10-PCS; 2023-06-04)
PROC: 8E0W4CZ Robotic Assisted Procedure of Trunk Region, Percutaneous Endoscopic Approach (ICD-10-PCS; 2023-06-04)
PROC: 0DB84ZZ Excision of Small Intestine, Percutaneous Endoscopic Approach (ICD-10-PCS; principal; 2023-06-04 14:45)
DX: K56.51 Intestinal adhesions [bands], with partial obstruction (principal); C85.19 Unspecified B-cell lymphoma, extranodal and solid organ sites; E87.20 Acidosis, unspecified; I10 Essential (primary) hypertension; D50.9 Iron deficiency anemia, unspecified; E11.9 Type 2 diabetes mellitus without complications; E66.9 Obesity, unspecified; E78.5 Hyperlipidemia, unspecified; J45.909 Unspecified asthma, uncomplicated; K21.9 Gastro-esophageal reflux disease without esophagitis; M54.30 Sciatica, unspecified side; N73.6 Female pelvic peritoneal adhesions (postinfective); Z88.5 Allergy status to narcotic agent; Z79.899 Other long term (current) drug therapy

== ENCOUNTER → 2023-07-06 | Outpatient (CLI) | payer MEDICAID ==
[~2023-07-06] MED LIST changes: +COLA100C5 PO; +ONDA-83 PO; +PERCOCET PO; +PROC10TA5 PO
== END ==
LOC: M ONCM 14:40
PROVIDERS: ATTEND Dietitian, Registered
DX: C83.09 Small cell B-cell lymphoma, extranodal and solid organ sites (principal); K21.9 Gastro-esophageal reflux disease without esophagitis; I10 Essential (primary) hypertension; Z68.35 Body mass index [BMI] 35.0-35.9, adult; Z71.3 Dietary counseling and surveillance

== ENCOUNTER → 2023-07-09 | Outpatient (CLI) | payer MEDICAID ==
[~2023-07-09] MED LIST changes: +LIDOCAINE 1% MDV 20ML VIAL As Ordered ONE; +LIDOCAINE W/EPINEPHRINE 1% 20ML VIAL As Ordered ONE; +MIDAZOLAM INJ 2MG/2ML VIAL As Ordered ONE; +ceFAZolin 2 GM/D5W 50 ML IV BAG As Ordered ONE; +fentaNYL 100 MCG/2 ML INJECTION As Ordered ONE
[2023-07-09 07:15] VITALS: TEMP 97.7
[2023-07-09 09:45] VITALS: BP 153/66; O2SAT 100
== END ==
LOC: M IRPRO 07:04
PROVIDERS: ATTEND Specialist
DX: C83.30 Diffuse large B-cell lymphoma, unspecified site (principal)
CPT/HCPCS: 36561; 99152; 99153; C1769; J0690; J2250; J3010

== ENCOUNTER → 2023-07-15 | Outpatient (CLI) | payer MEDICAID, OTHER ==
[~2023-07-15] MED LIST changes: -LIDOCAINE W/EPINEPHRINE 1% 20ML VIAL As Ordered ONE; -MIDAZOLAM INJ 2MG/2ML VIAL As Ordered ONE; +ONDA-282 PO; +ONDA-282 SL; -ONDA4TAB6 PO; -ONDA4TAB6 SL; -ceFAZolin 2 GM/D5W 50 ML IV BAG As Ordered ONE; -fentaNYL 100 MCG/2 ML INJECTION As Ordered ONE
[2023-07-15 12:30] VITALS: TEMP 98
[2023-07-15 12:41] LABS: BASO # 0.1 10^3/uL (0.0-0.2); BASO % 0.5 % (0.0-1.0); EOS # 0.4 10^3/uL (0.0-0.5); EOS % 3.7 % (0.0-3.0); HEMATOCRIT 41.3 % (36.0-47.0); HEMOGLOBIN 13.6 g/dl (12.0-15.5); LYMPH # 3.8 10^3/uL (1.5-5.0); LYMPH % 35.9 % (24.0-44.0); MEAN CORPUSCULAR HEMOGLOBIN 30.1 pg (27.0-33.0); MEAN CORPUSCULAR HGB CONC 32.9 g/dl (32.0-36.5); MEAN CORPUSCULAR VOLUME 91.4 fl (80.0-96.0); MONO # 0.6 10^3/uL (0.0-0.8); MONO % 5.9 % (2.0-8.0); NEUTROPHILS # 5.6 10^3/uL (1.5-8.5); NEUTROPHILS % 53.7 % (36.0-66.0); PLATELET COUNT, AUTOMATED 251 10^3/uL (150-450); RED BLOOD COUNT 4.52 10^6/uL (4.00-5.40); WHITE BLOOD COUNT 10.5 10^3/uL (4.0-10.0)
[2023-07-15 13:30] VITALS: BP 166/88; O2SAT 100
== END ==
LOC: M IRPRO 11:51
PROVIDERS: ATTEND Specialist
DX: C83.30 Diffuse large B-cell lymphoma, unspecified site (principal)

== ENCOUNTER → 2023-07-19 | Outpatient (CLI) | payer OTHER ==
[~2023-07-19] MED LIST changes: -LIDOCAINE 1% MDV 20ML VIAL As Ordered ONE
== END ==
LOC: M PLARAD 13:46
PROVIDERS: ATTEND Specialist
DX: C85.90 Non-Hodgkin lymphoma, unspecified, unspecified site (principal)
CPT/HCPCS: 78815; A9552

== ENCOUNTER → 2023-09-06 | Outpatient (CLI) | payer OTHER ==
[~2023-09-06] VITALS: Ht 172.7 cm; Wt 103.6 kg
[~2023-09-06] MED LIST changes: +LIDOCAINE 1% MDV 20ML VIAL As Ordered ONE; +MIDAZOLAM INJ 2MG/2ML VIAL As Ordered ONE; +ceFAZolin 2 GM/D5W 50 ML IV BAG As Ordered ONE; +fentaNYL 100 MCG/2 ML INJECTION As Ordered ONE
[2023-09-06 12:55] VITALS: TEMP 97.8
[2023-09-06] MEDS: NS 1,000 ML IV SCH (14:21)
[2023-09-06] MEDS: ceFAZolin SOD 2 GM in IV 1 EA IV ONE (14:21)
[2023-09-06 15:15] VITALS: BP 143/75; O2SAT 100
== END ==
LOC: M IRPRO 12:45
PROVIDERS: ATTEND Specialist
DX: C85.90 Non-Hodgkin lymphoma, unspecified, unspecified site (principal)
CPT/HCPCS: 36590; 99152; J0690; J2250; J3010

== ENCOUNTER → 2023-09-21 | Outpatient (REF) | payer OTHER ==
[~2023-09-21] MED LIST changes: -LIDOCAINE 1% MDV 20ML VIAL As Ordered ONE; -MIDAZOLAM INJ 2MG/2ML VIAL As Ordered ONE; -ceFAZolin 2 GM/D5W 50 ML IV BAG As Ordered ONE; -fentaNYL 100 MCG/2 ML INJECTION As Ordered ONE
[2023-09-21 14:36] LABS: HEMOGLOBIN A1c 6.8 % (4.0-6.0)
[2023-09-21 14:51] LABS: CHOLESTEROL RISK RATIO 2.89 (<5); HDL CHOLESTEROL 63.2 MG/DL (>40); LDL CHOLESTEROL 96.8 MG/DL (<100); MAGNESIUM LEVEL 1.4 MG/DL (1.8-2.4); NON-HDL-C 119.8 MG/DL
[2023-09-21 14:53] LABS: TOTAL 25(OH) VITAMIN D 27.2 NG/ML (20.0-100.0)
[2023-09-21 14:54] LABS: THYROID STIMULATING HORMONE 0.952 uIU/ML (0.55-4.78)
== END ==
LOC: M LAB REF 13:22
PROVIDERS: ATTEND Nurse Practitioner Family
DX: E66.9 Obesity, unspecified (principal); E55.9 Vitamin D deficiency, unspecified

== ENCOUNTER → 2023-12-23 | Outpatient (REF) | payer OTHER ==
[2023-12-23 19:21] LABS: BASO # 0.1 10^3/uL (0.0-0.2); BASO % 0.5 % (0.0-1.0); EOS # 0.4 10^3/uL (0.0-0.5); EOS % 3.6 % (0.0-3.0); HEMATOCRIT 41.5 % (36.0-47.0); HEMOGLOBIN 13.5 g/dl (12.0-15.5); MEAN CORPUSCULAR HEMOGLOBIN 30.5 pg (27.0-33.0); MEAN CORPUSCULAR HGB CONC 32.5 g/dl (32.0-36.5); MEAN CORPUSCULAR VOLUME 93.7 fl (80.0-96.0); MONO # 0.6 10^3/uL (0.0-0.8); MONO % 6.5 % (2.0-8.0); NEUTROPHILS # 4.5 10^3/uL (1.5-8.5); PLATELET COUNT, AUTOMATED 278 10^3/uL (150-450); RED BLOOD COUNT 4.43 10^6/uL (4.00-5.40); WHITE BLOOD COUNT 9.6 10^3/uL (4.0-10.0)
[2023-12-23 19:42] LABS: ALBUMIN 3.6 G/DL (3.2-5.2); ALKALINE PHOSPHATASE 93 U/L (35-104); ALT/SGPT 19 U/L (7.0-40); AST/SGOT 10 U/L (<34); BILIRUBIN,TOTAL 0.2 MG/DL (0.3-1.2); BLOOD UREA NITROGEN 17 MG/DL (9-23); CARBON DIOXIDE LEVEL 30 MMOL/L (20-31); CHLORIDE LEVEL 106 MMOL/L (98-107); CREATININE FOR GFR 0.85 MG/DL (0.55-1.30); GLOMERULAR FILTRATION RATE > 60.0 (>51); GLUCOSE, FASTING 83 MG/DL (60-100); MAGNESIUM LEVEL 1.5 MG/DL (1.8-2.4); POTASSIUM SERUM 4.1 MMOL/L (3.5-5.1); SODIUM LEVEL 142 MMOL/L (136-145); TOTAL PROTEIN 8.4 G/DL (5.7-8.2)
[2023-12-23 19:56] LABS: HEMOGLOBIN A1c 6.1 % (4.0-6.0)
== END ==
LOC: M LAB REF 17:31
PROVIDERS: ATTEND Nurse Practitioner Family
DX: E66.9 Obesity, unspecified (principal)

== ENCOUNTER → 2024-03-07 | Outpatient (CLI) | payer OTHER ==
[2024-03-07 15:08] LABS: BASO # 0.1 10^3/uL (0.0-0.2); BASO % 0.7 % (0.0-1.0); EOS # 0.3 10^3/uL (0.0-0.5); EOS % 3.2 % (0.0-3.0); HEMATOCRIT 43.3 % (36.0-47.0); LYMPH # 3.9 10^3/uL (1.5-5.0); LYMPH % 37.7 % (24.0-44.0); MEAN CORPUSCULAR HEMOGLOBIN 30.2 pg (27.0-33.0); MEAN CORPUSCULAR HGB CONC 32.3 g/dl (32.0-36.5); MEAN CORPUSCULAR VOLUME 93.5 fl (80.0-96.0); MONO # 0.7 10^3/uL (0.0-0.8); MONO % 6.4 % (2.0-8.0); NEUTROPHILS # 5.4 10^3/uL (1.5-8.5); NEUTROPHILS % 51.6 % (36.0-66.0); PLATELET COUNT, AUTOMATED 300 10^3/uL (150-450); RED BLOOD COUNT 4.63 10^6/uL (4.00-5.40); WHITE BLOOD COUNT 10.4 10^3/uL (4.0-10.0)
[2024-03-07 15:16] LABS: ERYTHROCYTE SEDIMENTATION RATE 37 mm/hr (0-30)
[2024-03-07 15:35] LABS: ALBUMIN 3.8 G/DL (3.2-5.2); ALKALINE PHOSPHATASE 101 U/L (35-104); ALT/SGPT 17 U/L (7.0-40); AST/SGOT 11 U/L (<34); BILIRUBIN,TOTAL 0.2 MG/DL (0.3-1.2); BLOOD UREA NITROGEN 23 MG/DL (9-23); CALCIUM LEVEL 9.5 MG/DL (8.5-10.1); CARBON DIOXIDE LEVEL 30 MMOL/L (20-31); CHLORIDE LEVEL 104 MMOL/L (98-107); CREATININE FOR GFR 0.92 MG/DL (0.55-1.30); FREE T4 1.35 NG/DL (0.89-1.76); GLOMERULAR FILTRATION RATE > 60.0 (>51); GLUCOSE, FASTING 97 MG/DL (60-100); POTASSIUM SERUM 3.4 MMOL/L (3.5-5.1); SODIUM LEVEL 143 MMOL/L (136-145); THYROID STIMULATING HORMONE 0.577 uIU/ML (0.55-4.78); TOTAL PROTEIN 8.4 G/DL (5.7-8.2); VITAMIN B12 LEVEL 952 PG/ML (211-911)
[2024-03-07 15:58] LABS: HEMOGLOBIN A1c 5.6 % (4.0-6.0)
[2024-03-08 09:23] LABS: T P ELECTROPHORESIS SO 8.4 g/dL (6.1-8.1)
== END ==
LOC: M LAB 13:19
PROVIDERS: ATTEND Psychiatry & Neurology Neurology
DX: E07.9 Disorder of thyroid, unspecified (principal); E11.42 Type 2 diabetes mellitus with diabetic polyneuropathy; E53.8 Deficiency of other specified B group vitamins

== ENCOUNTER 2024-04-09 09:24 | Emergency (ER) | payer OTHER ==
[~2024-04-09] VITALS: Ht 170.2 cm; Wt 110.0 kg
[2024-04-09 10:38] LABS: BASO % 0.4 % (0.0-1.0); EOS # 0.3 10^3/uL (0.0-0.5); EOS % 3.1 % (0.0-3.0); HEMATOCRIT 40.8 % (36.0-47.0); HEMOGLOBIN 13.5 g/dl (12.0-15.5); LYMPH # 3.3 10^3/uL (1.5-5.0); LYMPH % 32.6 % (24.0-44.0); MEAN CORPUSCULAR HEMOGLOBIN 30.1 pg (27.0-33.0); MEAN CORPUSCULAR HGB CONC 33.1 g/dl (32.0-36.5); MEAN CORPUSCULAR VOLUME 91.1 fl (80.0-96.0); MONO # 0.7 10^3/uL (0.0-0.8); NEUTROPHILS # 5.8 10^3/uL (1.5-8.5); NEUTROPHILS % 56.5 % (36.0-66.0); PLATELET COUNT, AUTOMATED 317 10^3/uL (150-450); RED BLOOD COUNT 4.48 10^6/uL (4.00-5.40); WHITE BLOOD COUNT 10.2 10^3/uL (4.0-10.0)
[2024-04-09 10:58] LABS: INR 0.93; PARTIAL THROMBOPLASTIN TIME 26.6 SECONDS (24.8-34.2); PROTHROMBIN TIME 12.8 SECONDS (12.5-14.5)
[2024-04-09] MEDS: BACITRACIN OINTMENT 30GM TUBE TOP ONE (10:58)
[2024-04-09 11:02] LABS: CK-MB VALUE MASS < 1.0 NG/ML (<3.6)
[2024-04-09 11:03] LABS: ETHYL ALCOHOL (ETHANOL) < 0.003 % (0.000-0.010); MAGNESIUM LEVEL 1.6 MG/DL (1.8-2.4)
[2024-04-09 11:07] LABS: THYROID STIMULATING HORMONE 1.301 uIU/ML (0.55-4.78)
[2024-04-09 11:10] LABS: CPK CREATINE PHOSPHOKINASE 132 U/L (34-145); MB/CK RELATIVE INDEX 0.75 (< OR =4)
[2024-04-09 12:01] VITALS: TEMP 97.2; O2SAT 96
[2024-04-09] MEDS: MAG SULF 1GM/100ML (MAG RUN) 1 GM in IV 1 EA IV ONE (12:32)
[2024-04-09 13:48] LABS: AMPHETAMINES LEVEL URINE NEGATIVE (NEGATIVE)
[2024-04-09 13:49] LABS: BARBITURATES URINE NEGATIVE (NEGATIVE); BENZODIAZEPINES URINE NEGATIVE (NEGATIVE); COCAINE METABOLITE URINE NEGATIVE (NEGATIVE); METHADONE URINE NEGATIVE (NEGATIVE); OPIATES URINE NEGATIVE (NEGATIVE); PHENCYCLIDINE URINE NEGATIVE (NEGATIVE)
[2024-04-09 13:52] LABS: CANNABINOIDS URINE POSITIVE (NEGATIVE)
[2024-04-09 13:56] VITALS: BP 147/65
[2024-04-09 14:16] LABS: CK-MB VALUE MASS < 1.0 NG/ML (<3.6)
[2024-04-09 14:26] LABS: CPK CREATINE PHOSPHOKINASE 114 U/L (34-145); MB/CK RELATIVE INDEX 0.87 (< OR =4)
== END 2024-04-09 15:00 | disposition home or self-care (01) ==
LOC: M ED 09:24
DX: R55 Syncope and collapse (principal); E83.42 Hypomagnesemia; T22.211A Burn of second degree of right forearm, initial encounter; X15.0XXA Contact with hot stove (kitchen), initial encounter; M43.16 Spondylolisthesis, lumbar region; M51.360 Other intervertebral disc degeneration, lumbar region with discogenic back pain only; K21.9 Gastro-esophageal reflux disease without esophagitis; I10 Essential (primary) hypertension; Z88.5 Allergy status to narcotic agent; Z91.048 Other nonmedicinal substance allergy status; Z79.52 Long term (current) use of systemic steroids; Z79.02 Long term (current) use of antithrombotics/antiplatelets; Z79.899 Other long term (current) drug therapy; Z79.83 Long term (current) use of bisphosphonates; Y92.009 Unspecified place in unspecified non-institutional (private) residence as the place of occurrence of the external cause; Y93.89 Activity, other specified; Y99.9 Unspecified external cause status
CPT/HCPCS: 16000; 70450; 72110; 80047; 80307; 82077; 82550; 82553; 83735; 84443; 84484; 85025; 85610; 85730; 93005; 93041; 94760; 96374; 99285; J3475

== ENCOUNTER → 2024-04-18 | Outpatient (REF) | payer OTHER ==
[2024-04-18 13:50] LABS: CREATININE, URINE 84.1 MG/DL; MALB URINE SIEMENS < 3.0 MG/L
== END ==
LOC: M LAB REF 12:03
PROVIDERS: ATTEND Nurse Practitioner Family
DX: E11.9 Type 2 diabetes mellitus without complications (principal)

== ENCOUNTER → 2024-05-04 | Outpatient (REF) | payer OTHER ==
[2024-05-04 13:00] LABS: ALBUMIN 3.6 G/DL (3.2-5.2); ALKALINE PHOSPHATASE 97 U/L (35-104); ALT/SGPT 19 U/L (7.0-40); AST/SGOT 18 U/L (<34); BILIRUBIN,TOTAL 0.3 MG/DL (0.3-1.2); BLOOD UREA NITROGEN 17 MG/DL (9-23); CALCIUM LEVEL 9.4 MG/DL (8.5-10.1); CARBON DIOXIDE LEVEL 26 MMOL/L (20-31); CHLORIDE LEVEL 103 MMOL/L (98-107); CHOLESTEROL LEVEL 145 MG/DL (<200); CREATININE FOR GFR 0.84 MG/DL (0.55-1.30); GLOMERULAR FILTRATION RATE > 60.0 (>51); GLUCOSE, FASTING 104 MG/DL (60-100); HDL CHOLESTEROL 55.7 MG/DL (>40); LDL CHOLESTEROL 73.7 MG/DL (<100); NON-HDL-C 89.3 MG/DL; POTASSIUM SERUM 4.2 MMOL/L (3.5-5.1); SODIUM LEVEL 139 MMOL/L (136-145); TOTAL PROTEIN 7.9 G/DL (5.7-8.2); TRIGLYCERIDES LEVEL 78 MG/DL (<150)
[2024-05-04 13:19] LABS: HEMOGLOBIN A1c 5.8 % (4.0-6.0)
[2024-05-04 13:40] LABS: CREATININE, URINE 246.3 MG/DL; MAU/CREAT RATIO 2.4 MCG/MG (0.0-30.0)
== END ==
LOC: M LAB REF 11:56
PROVIDERS: ATTEND Nurse Practitioner Family
DX: E11.9 Type 2 diabetes mellitus without complications (principal); E78.5 Hyperlipidemia, unspecified

== ENCOUNTER → 2024-12-21 | Outpatient (REF) | payer OTHER | LOC: M LAB REF 10:17 | PROVIDERS: ATTEND Student in an Organized Health Care Education/Training Program | DX: K21.9 Gastro-esophageal reflux disease without esophagitis (principal) ==